=== PATIENT | female | born 1970 | race Caucasian/White ===

== ENCOUNTER 2023-01-09 00:04 | Emergency (ER) | payer OTHER ==
[~2023-01-09] VITALS: Ht 165.1 cm; Wt 62.6 kg
[2023-01-09 00:13] VITALS: BP_SYST 127; PULSE 82; RESP 18; TEMP 97.7; O2SAT 95
[2023-01-09] MEDS ORDERED: MED4 PO (01:06)
[2023-01-09] MEDS ORDERED: FLUT1DIS3 INH (01:06)
[2023-01-09] MEDS ORDERED: predniSONE 20 MG TABLET PO ONE (01:15)
[2023-01-09] MEDS ORDERED: ALBUTEROL SULFATE 0.083% 2.5 MG/3 ML VIAL.NEB INH ONE (01:15)
[2023-01-09 01:20] VITALS: BP_SYST 127; PULSE 82; RESP 18; TEMP 97.7
[2023-01-09 01:34] VITALS: O2SAT 97
== END 2023-01-09 01:20 | disposition home or self-care (01) ==
LOC: SED 00:04
DX: J45.909 Unspecified asthma, uncomplicated (principal); B09 Unspecified viral infection characterized by skin and mucous membrane lesions; R05.9 Cough, unspecified; R21 Rash and other nonspecific skin eruption; R07.89 Other chest pain; Z85.828 Personal history of other malignant neoplasm of skin; Z79.899 Other long term (current) drug therapy
CPT/HCPCS: 99283; 71045; 94640; J7512